=== PATIENT | female | born 1965 | race Caucasian/White ===

== ENCOUNTER 2021-06-01 17:30 | Emergency (ER) | payer OTHER, MEDICAID ==
[~2021-06-01] VITALS: Ht 157.5 cm; Wt 50.0 kg
[2021-06-01 17:35] VITALS: BP 124/83
[2021-06-01] MEDS ORDERED: MECLIZINE HCL 25 MG TABLET PO ONE (18:00)
[2021-06-01] MEDS ORDERED: KETOROLAC TROMETHAMINE 30 MG/ML VIAL IM ONE (18:00)
== END 2021-06-01 19:13 | disposition home or self-care (01) ==
LOC: EMS 17:32
DX: S16.1XXA Strain of muscle, fascia and tendon at neck level, initial encounter (principal); F17.210 Nicotine dependence, cigarettes, uncomplicated; X50.9XXA Other and unspecified overexertion or strenuous movements or postures, initial encounter; Y93.89 Activity, other specified; Y92.89 Other specified places as the place of occurrence of the external cause; Y99.8 Other external cause status
CPT/HCPCS: 96372; 99283; J1885